=== PATIENT | female | born 1995 | race Two or more races ===

== ENCOUNTER 2025-09-13 11:51 | Emergency (ER) | payer SELFPAY ==
[~2025-09-13] VITALS: Ht 160 cm; Wt 59.1 kg
[2025-09-13 12:13] VITALS: O2SAT 100
[2025-09-13] MEDS ORDERED: BO1 TP (13:48)
[2025-09-13] MEDS: BACITRACIN ZINC OINT UDPKT TOP ONE (14:00)
[2025-09-13 14:07] VITALS: BP 110/72; PULSE 70; RESP 15; TEMP 36.8; O2SAT 96
== END 2025-09-13 14:08 | disposition home or self-care (01) ==
LOC: EDBD 11:51 → ER 13:09
DX: T25.222A Burn of second degree of left foot, initial encounter (principal); X12.XXXA Contact with other hot fluids, initial encounter; Y93.89 Activity, other specified; Y92.89 Other specified places as the place of occurrence of the external cause; Y99.8 Other external cause status
CPT/HCPCS: 10060; 99282